=== PATIENT | male | born 1970 | race Caucasian/White ===

== ENCOUNTER 2019-08-24 11:04 | Inpatient (IN) ==
[2019-08-24] MEDS ORDERED: Regadenoson 0.4 MG/5 ML SYRINGE IVP ONE (11:53)
[2019-08-24 14:53] LABS: Basophils % 0.4 %; Eosinophils # 0.1 K/mcL (0.0-0.6); Eosinophils % 1.3 %; Hemoglobin 13.3 g/dL (12.9-16.9); Lymphocytes # 2.8 K/mcL (0.6-4.6); Lymphocytes % 35.7 %; Mean Corpuscular HGB Conc 32.4 g/dL (31.6-35.5); Mean Corpuscular Hemoglobin 30.6 pg (28.0-33.3); Mean Corpuscular Volume 94.5 fL (83.0-100.0); Mean Platelet Volume 10.4 fL (9.4-12.4); Monocytes # 0.8 K/mcL (0.0-1.3); Monocytes % 10.3 %; Platelet Count 201 K/mcL (140-400); Red Blood Count 4.34 M/mcL (4.19-5.50); Red Cell Distribution Width 12.9 % (11.5-14.5); Segmented Neutrophils % 51.3 %; White Blood Count 7.8 K/mcL (4.3-11.1)
[2019-08-24 14:55] LABS: INR 0.9; Prothrombin Time 10.2 Seconds (9.4-12.1)
[2019-08-24 15:08] LABS: BUN/Creatinine Ratio 11 (6-26); Blood Urea Nitrogen 8 mg/dL (6-20); Calcium 9.7 mg/dL (8.6-10.3); Carbon Dioxide 28 mEq/L (23-29); Chloride 104 mEq/L (98-107); Glucose 100 mg/dL (70-105); Osmolality,Calculated 286 (280-300); Potassium 4.5 mEq/L (3.5-5.1); Sodium 139 mEq/L (136-145); eGFR For African Americans > 60 (> 60); eGFR For Non-African Americans > 60 (> 60)
[2019-08-24] MEDS ORDERED: *HR* Heparin 10,000 UNIT/10 ML VIAL ONE (15:11)
[2019-08-24] MEDS ORDERED: Heparin 1,000 UNITS/500 mL 500 ML ONE (15:11)
[2019-08-24] MEDS ORDERED: 0.9 % Sodium Chloride 2,000 ML ONE (15:11)
[2019-08-24] MEDS ORDERED: ISOVUE-370 200 ML INFUS..BTL ONE (15:11)
[2019-08-24] MEDS ORDERED: Nitroglycerin 1,000 MCG/10 ML VIAL IV ONE (15:12)
[2019-08-24] MEDS ORDERED: *HR* FentaNYL (PF) 100 MCG/2 ML VIAL ONE (15:29)
[2019-08-24] MEDS ORDERED: *HR* Midazolam HCl 2 MG/2 ML VIAL ONE (15:29)
[2019-08-24] MEDS ORDERED: Tirofiban 12.5 MG/250ML 12.5 MG/250 ML BAG ONE (15:47)
[2019-08-24] MEDS ORDERED: *HR* Heparin 5,000 UNIT/ML VIAL IVP PRN (16:01)
[2019-08-24] MEDS ORDERED: *HR* Heparin 5,000 UNIT/ML VIAL IVP ONE (16:01)
[2019-08-24] MEDS: Heparin 25,000 UNIT/250 ML D5W 25,000 UNIT/250 ML IV.SOLN IVC SCH (17:02)
[2019-08-24 17:34] LABS: Hematocrit 39.1 % (37.5-50.1); Hemoglobin 12.5 g/dL (12.9-16.9); Mean Corpuscular Hemoglobin 29.8 pg (28.0-33.3); Mean Corpuscular Volume 93.1 fL (83.0-100.0); Mean Platelet Volume 10.1 fL (9.4-12.4); Platelet Count 189 K/mcL (140-400); White Blood Count 7.7 K/mcL (4.3-11.1)
[2019-08-24 17:39] LABS: Prothrombin Time 10.8 Seconds (9.4-12.1)
[2019-08-24 17:47] LABS: Heparin anti-factor XA UFH 0.04 IU/mL (0.30-0.70)
[2019-08-24] MEDS: Divalproex (24 HR) 500 MG TABLET PO SCH (19:40)
[2019-08-24] MEDS: Famotidine 20 MG TABLET PO SCH (19:41)
[2019-08-24] MEDS: Gabapentin 300 MG CAPSULE PO SCH (19:41)
[2019-08-24] MEDS: Sucralfate 1 GM TABLET PO SCH (19:41)
[2019-08-24 19:43] LABS: Estimated Average Glucose 143 mg/dl; Hemoglobin A1C 6.6 %
[2019-08-24] MEDS: *HR* Heparin 5,000 UNIT/ML VIAL IVP PRN (23:19)
[2019-08-25] MEDS: *HR* Heparin 5,000 UNIT/ML VIAL IVP PRN ×2 (06:16→14:24)
[2019-08-25] MEDS: Gabapentin 300 MG CAPSULE PO SCH ×2 (07:55→20:13)
[2019-08-25] MEDS: Divalproex (24 HR) 500 MG TABLET PO SCH ×2 (07:55→20:14)
[2019-08-25] MEDS: Aspirin 81 MG TAB.CHEW PO SCH (07:55)
[2019-08-25] MEDS: Sucralfate 1 GM TABLET PO SCH ×2 (07:56→17:19)
[2019-08-25] MEDS ORDERED: Lisinopril-HCTZ 20-12.5mg TABLET PO SCH (09:00)
[2019-08-25 10:33] LABS: BUN/Creatinine Ratio 13 (6-26); Blood Urea Nitrogen 11 mg/dL (6-20); Calcium 9.5 mg/dL (8.6-10.3); Carbon Dioxide 27 mEq/L (23-29); Chloride 103 mEq/L (98-107); Chol/HDL Ratio 5.4 (0-4.9); Cholesterol 129 mg/dL (< 200); Glucose 113 mg/dL (70-105); HDL Cholesterol 24 mg/dL (40-59); LDL Cholesterol,Calculated 60 mg/dL (< 100); Osmolality,Calculated 286 (280-300); Potassium 3.9 mEq/L (3.5-5.1); Sodium 138 mEq/L (136-145); Triglycerides 224 mg/dL (< 150); eGFR For African Americans > 60 (> 60); eGFR For Non-African Americans > 60 (> 60)
[2019-08-25] MEDS: Heparin 25,000 UNIT/250 ML D5W 25,000 UNIT/250 ML IV.SOLN IVC SCH (13:15)
[2019-08-25] MEDS: Famotidine 20 MG TABLET PO SCH (20:13)
[2019-08-26] MEDS: Heparin 25,000 UNIT/250 ML D5W 25,000 UNIT/250 ML IV.SOLN IVC SCH ×2 (04:51→20:05)
[2019-08-26] MEDS: Aspirin 81 MG TAB.CHEW PO SCH (07:57)
[2019-08-26] MEDS: Gabapentin 300 MG CAPSULE PO SCH (07:57)
[2019-08-26] MEDS: Divalproex (24 HR) 500 MG TABLET PO SCH (07:57)
[2019-08-26] MEDS: Sucralfate 1 GM TABLET PO SCH ×2 (07:57→16:07)
[2019-08-26 11:03] LABS: Basophils % 0.4 %; Eosinophils # 0.1 K/mcL (0.0-0.6); Eosinophils % 0.8 %; Hematocrit 39.6 % (37.5-50.1); Hemoglobin 12.9 g/dL (12.9-16.9); Immature Granulocytes % 0.8 % (0-4); Lymphocytes # 3.1 K/mcL (0.6-4.6); Lymphocytes % 36.5 %; Mean Corpuscular HGB Conc 32.6 g/dL (31.6-35.5); Mean Corpuscular Hemoglobin 30.1 pg (28.0-33.3); Mean Corpuscular Volume 92.5 fL (83.0-100.0); Mean Platelet Volume 10.3 fL (9.4-12.4); Monocytes # 0.8 K/mcL (0.0-1.3); Monocytes % 9.8 %; Neutrophils # 4.4 K/mcL (1.6-8.9); Platelet Count 205 K/mcL (140-400); Red Blood Count 4.28 M/mcL (4.19-5.50); Red Cell Distribution Width 13.1 % (11.5-14.5); Segmented Neutrophils % 51.7 %; White Blood Count 8.5 K/mcL (4.3-11.1)
[2019-08-26 11:21] LABS: BUN/Creatinine Ratio 16 (6-26); Blood Urea Nitrogen 15 mg/dL (6-20); Calcium 9.5 mg/dL (8.6-10.3); Carbon Dioxide 25 mEq/L (23-29); Chloride 104 mEq/L (98-107); Glucose 125 mg/dL (70-105); Magnesium 1.9 mg/dL (1.6-2.6); Osmolality,Calculated 288 (280-300); Potassium 3.7 mEq/L (3.5-5.1); Sodium 138 mEq/L (136-145); eGFR For African Americans > 60 (> 60); eGFR For Non-African Americans > 60 (> 60)
[2019-08-26] MEDS ORDERED: Chlorhexidine Rinse 15 ML MOUTHWASH MM SCH (18:00)
[2019-08-26] MEDS ORDERED: *HR* Heparin 5,000 UNIT/ML VIAL IVP PRN ×2 (19:43→19:44)
[2019-08-26] MEDS ORDERED: Divalproex (24 HR) 500 MG TABLET PO ONE (21:00)
[2019-08-26] MEDS ORDERED: Gabapentin 300 MG CAPSULE PO ONE (21:00)
[2019-08-26] MEDS ORDERED: Famotidine 20 MG TABLET PO ONE (21:00)
[2019-08-27] MEDS ORDERED: Heparin 15,000 UNIT in 0.9 % Sodium Chloride 500 ML IV ONE (06:00)
[2019-08-27] MEDS ORDERED: Dextrose 50 % in Water (Vial) 30 ML, Sodium Bicarbonate 20 MEQ, Potassium Chloride 15 M... TH ONE (06:00)
[2019-08-27] MEDS ORDERED: Dextrose 50 % in Water (Vial) 30 ML, Sodium Bicarbonate 20 MEQ, Lidocaine 1% 5 ML, Insu... TH ONE ×3 (06:00)
[2019-08-27] MEDS ORDERED: Norepinephrine 4 MG in 0.9 % Sodium Chloride 250 ML IVC PRN (06:00)
[2019-08-27] MEDS ORDERED: Insulin Human Regular 100 UNIT in 0.9 % Sodium Chloride 100 ML IV PRN (06:00)
[2019-08-27] MEDS ORDERED: Chlorhexidine Rinse 15 ML MOUTHWASH MM ONE (06:30)
[2019-08-27] MEDS ORDERED: NiCARdipine 2.5 MG/10 ML Syringe IVPB ONE (06:52)
[2019-08-27] MEDS ORDERED: CeFAZolin Syr 2,000MG/20 ML 2,000 MG/20 ML SYRINGE IVPB ONE ×2 (07:00)
[2019-08-27] MEDS ORDERED: *HR* Midazolam HCl 5 MG/5 ML VIAL IVP ONE (07:01)
[2019-08-27] MEDS ORDERED: *HR* FentaNYL (PF) 1,000 MCG/20 ML VIAL ONE (07:01)
[2019-08-27] MEDS ORDERED: *HR* Propofol 200 MG/20 ML VIAL IVP ONE (07:01)
[2019-08-27] MEDS ORDERED: *HR* Rocuronium Bromide 50 MG/5 ML VIAL ONE ×3 (07:02→09:56)
[2019-08-27] MEDS ORDERED: Lidocaine 2% Syringe 100 MG/5 ML ONE (07:04)
[2019-08-27] MEDS ORDERED: Tranexamic Acid 1,000 MG/10 ML VIAL ONE (07:04)
[2019-08-27] MEDS ORDERED: Dexamethasone 4 MG/ML VIAL ONE (07:05)
[2019-08-27] MEDS ORDERED: *HR* PHENYLEPHRINE 1,000 MCG/10 ML SYRINGE IVP ONE (07:05)
[2019-08-27] MEDS ORDERED: *HR* Magnesium Sulfate 1 GM/2 ML VIAL ONE (07:06)
[2019-08-27] MEDS ORDERED: Famotidine 20 MG/2 ML VIAL ONE (07:06)
[2019-08-27] MEDS ORDERED: Aspirin 81 MG TAB.CHEW PO STA (07:35)
[2019-08-27 08:40] LABS: ABG Base Excess 2 mEq/L (-2 to 3); ABG Chloride 105 mEq/L (98-107); ABG Glucose 97 mg/dL (60-95); ABG HCO3 28 mEq/L (21-27); ABG Oxygen Saturation 100 % (95-98); ABG PCO2 46 mmHg (35-45); ABG PH 7.39 pH Units (7.32-7.45); ABG PO2 230 mmHg (85-104); ABG TCO2 29 mEq/L (20-26)
[2019-08-27 09:47] LABS: ABG Base Excess 2 mEq/L (-2 to 3); ABG Chloride 106 mEq/L (98-107); ABG Glucose 105 mg/dL (60-95); ABG HCO3 27 mEq/L (21-27); ABG Ionized Calcium 1.13 mmol/L (1.15-1.35); ABG Oxygen Saturation 100 % (95-98); ABG PCO2 43 mmHg (35-45); ABG PO2 181 mmHg (85-104); ABG TCO2 28 mEq/L (20-26)
[2019-08-27] MEDS ORDERED: Calcium Gluconate 1,000 MG/10 ML VIAL ONE (09:56)
[2019-08-27] MEDS ORDERED: Protamine Sulfate 250 MG/25 ML VIAL IVP ONE (09:56)
[2019-08-27 10:21] LABS: ABG Base Excess 2 mEq/L (-2 to 3); ABG Chloride 101 mEq/L (98-107); ABG Glucose 152 mg/dL (60-95); ABG HCO3 27 mEq/L (21-27); ABG Ionized Calcium 0.98 mmol/L (1.15-1.35); ABG Oxygen Saturation 100 % (95-98); ABG PCO2 41 mmHg (35-45); ABG PH 7.43 pH Units (7.32-7.45); ABG PO2 581 mmHg (85-104); ABG TCO2 28 mEq/L (20-26)
[2019-08-27 10:58] LABS: ABG Base Excess 3 mEq/L (-2 to 3); ABG Chloride 103 mEq/L (98-107); ABG Glucose 112 mg/dL (60-95); ABG HCO3 27 mEq/L (21-27); ABG Ionized Calcium 1.06 mmol/L (1.15-1.35); ABG Oxygen Saturation 100 % (95-98); ABG PCO2 39 mmHg (35-45); ABG PH 7.45 pH Units (7.32-7.45); ABG PO2 617 mmHg (85-104); ABG TCO2 29 mEq/L (20-26)
[2019-08-27] MEDS ORDERED: Amiodarone Premix 360 MG/200 ML BAG IVC ONE ×2 (11:09→12:08)
[2019-08-27] MEDS ORDERED: *HR* Amiodarone 150 MG/3 ML VIAL IVPB ONE (11:09)
[2019-08-27 11:31] LABS: ABG Base Excess 3 mEq/L (-2 to 3); ABG Chloride 105 mEq/L (98-107); ABG Glucose 116 mg/dL (60-95); ABG HCO3 28 mEq/L (21-27); ABG Ionized Calcium 1.06 mmol/L (1.15-1.35); ABG Oxygen Saturation 100 % (95-98); ABG PCO2 43 mmHg (35-45); ABG PH 7.43 pH Units (7.32-7.45); ABG PO2 460 mmHg (85-104); ABG TCO2 30 mEq/L (20-26)
[2019-08-27 12:05] LABS: ABG Base Excess 2 mEq/L (-2 to 3); ABG Chloride 103 mEq/L (98-107); ABG Glucose 107 mg/dL (60-95); ABG HCO3 27 mEq/L (21-27); ABG Ionized Calcium 1.09 mmol/L (1.15-1.35); ABG Oxygen Saturation 98 % (95-98); ABG PCO2 40 mmHg (35-45); ABG PH 7.43 pH Units (7.32-7.45); ABG PO2 98 mmHg (85-104); ABG TCO2 28 mEq/L (20-26)
[2019-08-27] MEDS ORDERED: Acetaminophen 650 MG RECTAL SUPP RC PRN (12:08)
[2019-08-27] MEDS ORDERED: Acetaminophen 325 MG TABLET PO PRN (12:08)
[2019-08-27] MEDS ORDERED: Naloxone 0.4 MG/ML INJ IVP PRN (12:08)
[2019-08-27] MEDS ORDERED: Insulin Regular, Human 100 UNIT/ML IV PRN (12:08)
[2019-08-27] MEDS ORDERED: Potassium Chloride 40 MEQ/200 ML BAG IVPB PRN (12:08)
[2019-08-27] MEDS ORDERED: Ondansetron 4 MG/2 ML VIAL IVP PRN (12:08)
[2019-08-27] MEDS ORDERED: Albumin Human 5% 12.5 GM/250 ML IV.SOLN ONE (12:08)
[2019-08-27] MEDS ORDERED: *HR* Dextrose 50 % in Water (Vial) 50 ML VIAL IVP PRN (12:08)
[2019-08-27] MEDS ORDERED: Amiodarone Premix 360 MG/200 ML BAG IVC SCH (12:15)
[2019-08-27 13:20] LABS: ABG Base Excess 3 mEq/L (-2 to 3); ABG HCO3 29 mEq/L (21-27); ABG Oxygen Saturation 98 % (95-98); ABG PCO2 47 mmHg (35-45); ABG PO2 105 mmHg (85-104); ABG TCO2 30 mEq/L (20-26); Blood Gas Modality AF; Blood Gas VT 600 cc
[2019-08-27] MEDS: *HR* FentaNYL (PF) 100 MCG/2 ML VIAL IVP PRN ×8 (13:25→23:10)
[2019-08-27 13:28] LABS: Basophils % 0.2 %; Eosinophils % 0.2 %; Hematocrit 34.7 % (37.5-50.1); Immature Granulocytes % 0.9 % (0-4); Lymphocytes # 2.6 K/mcL (0.6-4.6); Lymphocytes % 14.3 %; Mean Corpuscular HGB Conc 32.6 g/dL (31.6-35.5); Mean Corpuscular Hemoglobin 30.1 pg (28.0-33.3); Mean Corpuscular Volume 92.3 fL (83.0-100.0); Mean Platelet Volume 10.2 fL (9.4-12.4); Monocytes # 1.7 K/mcL (0.0-1.3); Monocytes % 9.5 %; Neutrophils # 13.4 K/mcL (1.6-8.9); Platelet Count 134 K/mcL (140-400); Red Blood Count 3.76 M/mcL (4.19-5.50); Red Cell Distribution Width 12.9 % (11.5-14.5); Segmented Neutrophils % 74.9 %
[2019-08-27 13:32] LABS: Hemoglobin 11.3 g/dL (12.9-16.9); White Blood Count 17.9 K/mcL (4.3-11.1)
[2019-08-27] MEDS ORDERED: Tranexamic Acid 1,000 MG/10 ML VIAL IR ONE (13:34)
[2019-08-27] MEDS ORDERED: Mannitol 25% vial 12.5 GM/50 ML VIAL IVPB ONE (13:34)
[2019-08-27] MEDS ORDERED: D5% in Water 250 ML IV BAG IV ONE (13:34)
[2019-08-27] MEDS ORDERED: Lidocaine 2% Syringe 100 MG/5 ML IVP ONE (13:34)
[2019-08-27] MEDS ORDERED: Heparin 1,000 UNITS/500 mL IV.SOLN IR ONE (13:34)
[2019-08-27] MEDS ORDERED: *HR* Phenylephrine 10 MG/ML VIAL IVC ONE (13:34)
[2019-08-27] MEDS ORDERED: *HR* Magnesium Sulfate 2 GM/50 ML PIGGYBACK IVPB ONE (13:34)
[2019-08-27] MEDS ORDERED: Albumin Human 25% 25 GM/100 ML IV.SOLN IVPB ONE (13:34)
[2019-08-27] MEDS ORDERED: *HR* Heparin 10,000 UNIT/10 ML VIAL IR ONE (13:34)
[2019-08-27 13:37] LABS: INR 1.2
[2019-08-27 13:41] LABS: Activated Partial Thrombo Time 29.8 Seconds (26.0-36.0)
[2019-08-27 13:44] LABS: Prothrombin Time 13.6 Seconds (9.4-12.1)
[2019-08-27] MEDS: 0.9 % Sodium Chloride w KCl 20 MEQ/1,000 ML MLS IVC SCH (13:47)
[2019-08-27 13:48] LABS: BUN/Creatinine Ratio 18 (6-26); Blood Urea Nitrogen 14 mg/dL (6-20); Carbon Dioxide 29 mEq/L (23-29); Chloride 105 mEq/L (98-107); Glucose 157 mg/dL (70-105); Magnesium 2.6 mg/dL (1.6-2.6); Osmolality,Calculated 292 (280-300); Sodium 139 mEq/L (136-145); eGFR For African Americans > 60 (> 60); eGFR For Non-African Americans > 60 (> 60)
[2019-08-27] MEDS: Pantoprazole 40 MG VIAL IVP SCH (13:55)
[2019-08-27] MEDS: *HR* OxyCODONE/APAP 5/325 TABLET PO PRN ×2 (13:55→19:41)
[2019-08-27] MEDS: Albumin Human 5% 12.5 GM/250 ML IV.SOLN IVPB PRN ×2 (14:59→22:50)
[2019-08-27 15:48] LABS: ABG Base Excess 2 mEq/L (-2 to 3); ABG HCO3 27 mEq/L (21-27); ABG Oxygen Saturation 93 % (95-98); ABG PCO2 44 mmHg (35-45); ABG PO2 66 mmHg (85-104); ABG TCO2 29 mEq/L (20-26); Blood Gas Modality CPAP/PS; Blood Gas Pressure Support 10 cm H2O
[2019-08-27] MEDS: CeFAZolin 2 GM/120 ML BAG IVPB SCH (15:57)
[2019-08-27] MEDS ORDERED: 0.9 % Sodium Chloride 250 ML ONE (15:58)
[2019-08-27] MEDS ORDERED: *HR* FentaNYL (PF) 100 MCG/2 ML VIAL IVP ONE (16:04)
[2019-08-27 16:45] LABS: ABG Base Excess 2 mEq/L (-2 to 3); ABG HCO3 28 mEq/L (21-27); ABG Oxygen Saturation 93 % (95-98); ABG PCO2 48 mmHg (35-45); ABG PH 7.37 pH Units (7.32-7.45); ABG PO2 71 mmHg (85-104); ABG TCO2 29 mEq/L (20-26)
[2019-08-27] MEDS: Metoclopramide 10 MG/2 ML VIAL IVP SCH (17:01)
[2019-08-27] MEDS: Ketorolac 15 MG/ML VIAL IVP SCH (17:01)
[2019-08-27 17:46] LABS: Hematocrit 35.5 % (37.5-50.1); Hemoglobin 11.5 g/dL (12.9-16.9)
[2019-08-27] MEDS: niCARdipine 20 MG/200 ML MLS IVC SCH ×2 (18:49→20:04)
[2019-08-27] MEDS: Norepinephrine 4 MG/254 ML IV.SOLN IVC SCH (18:49)
[2019-08-27] MEDS: Chlorhexidine Rinse 15 ML MOUTHWASH MM SCH (20:02)
[2019-08-27] MEDS: Heparin 25,000 UNIT/250 ML D5W 25,000 UNIT/250 ML IV.SOLN IVC SCH (20:04)
[2019-08-27] MEDS: Insulin Human Regular 100 UNIT in 0.9 % Sodium Chloride 100 ML IVC SCH (20:08)
[2019-08-28] MEDS: Metoclopramide 10 MG/2 ML VIAL IVP SCH ×5 (00:01→23:20)
[2019-08-28] MEDS: Ketorolac 15 MG/ML VIAL IVP SCH ×5 (00:01→23:20)
[2019-08-28] MEDS: *HR* OxyCODONE/APAP 5/325 TABLET PO PRN ×5 (00:01→20:30)
[2019-08-28] MEDS: CeFAZolin 2 GM/120 ML BAG IVPB SCH (00:01)
[2019-08-28] MEDS: niCARdipine 20 MG/200 ML MLS IVC SCH ×8 (00:02→21:57)
[2019-08-28] MEDS: *HR* FentaNYL (PF) 100 MCG/2 ML VIAL IVP PRN ×3 (03:12→12:20)
[2019-08-28 05:35] LABS: Basophils % 0.1 %; Hematocrit 30.6 % (37.5-50.1); Immature Granulocytes % 0.5 % (0-4); Lymphocytes # 1.6 K/mcL (0.6-4.6); Lymphocytes % 14.3 %; Mean Corpuscular HGB Conc 32.4 g/dL (31.6-35.5); Mean Corpuscular Volume 92.7 fL (83.0-100.0); Mean Platelet Volume 10.5 fL (9.4-12.4); Monocytes % 17.3 %; Neutrophils # 7.7 K/mcL (1.6-8.9); Platelet Count 116 K/mcL (140-400); Red Cell Distribution Width 12.9 % (11.5-14.5); Segmented Neutrophils % 67.8 %; White Blood Count 11.3 K/mcL (4.3-11.1)
[2019-08-28 05:37] LABS: Hemoglobin 9.9 g/dL (12.9-16.9)
[2019-08-28 05:39] LABS: Prothrombin Time 11.5 Seconds (9.4-12.1)
[2019-08-28 05:54] LABS: BUN/Creatinine Ratio 19 (6-26); Blood Urea Nitrogen 14 mg/dL (6-20); Calcium 8.1 mg/dL (8.6-10.3); Carbon Dioxide 27 mEq/L (23-29); Chloride 105 mEq/L (98-107); Glucose 136 mg/dL (70-105); Magnesium 2.1 mg/dL (1.6-2.6); Osmolality,Calculated 291 (280-300); Sodium 139 mEq/L (136-145); eGFR For African Americans > 60 (> 60); eGFR For Non-African Americans > 60 (> 60)
[2019-08-28] MEDS: 0.9 % Sodium Chloride w KCl 20 MEQ/1,000 ML MLS IVC SCH (07:12)
[2019-08-28] MEDS ORDERED: Amiodarone Premix 360 MG/200 ML BAG IVC SCH (07:30)
[2019-08-28] MEDS: Chlorhexidine Rinse 15 ML MOUTHWASH MM SCH ×2 (08:02→20:29)
[2019-08-28] MEDS: Pantoprazole 40 MG VIAL IVP SCH (08:03)
[2019-08-28] MEDS: Furosemide 20 MG/2 ML VIAL IVP SCH ×2 (08:03→20:29)
[2019-08-28] MEDS ORDERED: D5% in Water 1,000 ML IVC PRN (08:39)
[2019-08-28] MEDS ORDERED: Dextrose Gel 15 GM/37.5 ML TUBE PO PRN ×2 (08:39)
[2019-08-28] MEDS ORDERED: *HR* Dextrose 50 % in Water (Vial) 50 ML VIAL IVP PRN (08:39)
[2019-08-28] MEDS: Insulin Human Regular 100 UNIT in 0.9 % Sodium Chloride 100 ML IVC SCH (08:46)
[2019-08-28] MEDS ORDERED: Divalproex (24 HR) 500 MG TABLET PO SCH ×2 (09:00→21:00)
[2019-08-28] MEDS ORDERED: Aspirin Enteric Coated 81 MG Tablet PO SCH (09:00)
[2019-08-28] MEDS: *HR* Heparin 5,000 UNIT/ML VIAL SQ SCH ×2 (09:20→17:06)
[2019-08-28] MEDS: Gabapentin 300 MG CAPSULE PO SCH ×2 (09:20→20:29)
[2019-08-28] MEDS: Insulin LISPRO 300 UNITS/3 ML VIAL SQ SCH ×3 (11:28→17:06)
[2019-08-28] MEDS: Norepinephrine 4 MG/254 ML IV.SOLN IVC SCH (11:29)
[2019-08-28] MEDS: Sucralfate 1 GM TABLET PO SCH (16:26)
[2019-08-28] MEDS ORDERED: Insulin LISPRO 300 UNITS/3 ML VIAL SQ SCH (21:00)
[2019-08-29] MEDS: *HR* OxyCODONE/APAP 5/325 TABLET PO PRN ×3 (02:10→19:57)
[2019-08-29 03:56] LABS: Eosinophils % 0.2 %; Mean Corpuscular Hemoglobin 30.2 pg (28.0-33.3); Nucleated Red Blood Cells 0.4 /100 WBC (0); Red Cell Distribution Width 13.2 % (11.5-14.5); Segmented Neutrophils % 60.5 %
[2019-08-29 03:57] LABS: Basophils % 0.1 %; Hematocrit 27.2 % (37.5-50.1); Hemoglobin 8.8 g/dL (12.9-16.9); Immature Granulocytes % 0.9 % (0-4); Immature Platelets 6.7 % (1.1-6.1); Lymphocytes # 2.2 K/mcL (0.6-4.6); Lymphocytes % 23.3 %; Mean Corpuscular HGB Conc 32.4 g/dL (31.6-35.5); Mean Corpuscular Volume 93.5 fL (83.0-100.0); Monocytes # 1.4 K/mcL (0.0-1.3); Red Blood Count 2.91 M/mcL (4.19-5.50); White Blood Count 9.3 K/mcL (4.3-11.1)
[2019-08-29 04:16] LABS: BUN/Creatinine Ratio 23 (6-26); Blood Urea Nitrogen 18 mg/dL (6-20); Calcium 8.3 mg/dL (8.6-10.3); Carbon Dioxide 29 mEq/L (23-29); Chloride 100 mEq/L (98-107); Glucose 120 mg/dL (70-105); Osmolality,Calculated 285 (280-300); Potassium 3.6 mEq/L (3.5-5.1); Sodium 136 mEq/L (136-145); eGFR For African Americans > 60 (> 60); eGFR For Non-African Americans > 60 (> 60)
[2019-08-29 04:17] LABS: Neutrophils # 5.6 K/mcL (1.6-8.9); Platelet Count 95 K/mcL (140-400); Platelet Estimate Decreased (Normal)
[2019-08-29] MEDS: Ketorolac 15 MG/ML VIAL IVP SCH ×4 (05:12→23:15)
[2019-08-29] MEDS: *HR* Heparin 5,000 UNIT/ML VIAL SQ SCH ×2 (05:12→17:01)
[2019-08-29] MEDS: Metoclopramide 10 MG/2 ML VIAL IVP SCH ×4 (05:12→23:15)
[2019-08-29] MEDS ORDERED: Acetaminophen 325 MG TABLET PO PRN (08:14)
[2019-08-29] MEDS ORDERED: Dextrose Gel 15 GM/37.5 ML TUBE PO PRN ×2 (08:14)
[2019-08-29] MEDS ORDERED: *HR* Dextrose 50 % in Water (Vial) 50 ML VIAL IVP PRN (08:14)
[2019-08-29] MEDS ORDERED: D5% in Water 1,000 ML IVC PRN (08:14)
[2019-08-29] MEDS ORDERED: Ondansetron 4 MG/2 ML VIAL IVP PRN (08:14)
[2019-08-29] MEDS ORDERED: Naloxone 0.4 MG/ML INJ IVP PRN (08:14)
[2019-08-29] MEDS ORDERED: Insulin Regular, Human 100 UNIT/ML IV PRN (08:14)
[2019-08-29] MEDS: Famotidine 20 MG TABLET PO SCH ×2 (08:48→19:56)
[2019-08-29] MEDS: Aspirin Enteric Coated 81 MG Tablet PO SCH (08:49)
[2019-08-29] MEDS: Furosemide 20 MG/2 ML VIAL IVP SCH ×2 (08:49→19:57)
[2019-08-29] MEDS: Gabapentin 300 MG CAPSULE PO SCH ×2 (08:49→19:57)
[2019-08-29] MEDS ORDERED: *HR* Amiodarone 200 MG TABLET PO SCH ×2 (09:00)
[2019-08-29] MEDS ORDERED: Famotidine 20 MG TABLET PO SCH (09:00)
[2019-08-29] MEDS: Insulin LISPRO 300 UNITS/3 ML VIAL SQ SCH ×4 (12:03→19:58)
[2019-08-29] MEDS: Sucralfate 1 GM TABLET PO SCH ×2 (17:01→19:58)
[2019-08-29] MEDS: Divalproex (24 HR) 500 MG TABLET PO SCH (20:38)
[2019-08-30] MEDS: *HR* OxyCODONE/APAP 5/325 TABLET PO PRN ×3 (01:27→20:33)
[2019-08-30] MEDS ORDERED: Amiodarone Premix 150 MG/100 ML BAG IVPB ONE (02:03)
[2019-08-30] MEDS ORDERED: Amiodarone Premix 360 MG/200 ML BAG IVC ONE (02:15)
[2019-08-30 03:14] LABS: Basophils % 0.4 %; Mean Corpuscular HGB Conc 32.6 g/dL (31.6-35.5); Monocytes % 5.2 %
[2019-08-30 03:16] LABS: Eosinophils # 0.1 K/mcL (0.0-0.6); Eosinophils % 2.6 %; Hematocrit 26.4 % (37.5-50.1); Hemoglobin 8.6 g/dL (12.9-16.9); Immature Granulocytes % 2.6 % (0-4); Immature Platelets 4.1 % (1.1-6.1); Lymphocytes # 1.4 K/mcL (0.6-4.6); Lymphocytes % 60.4 %; Mean Corpuscular Volume 95.3 fL (83.0-100.0); Mean Platelet Volume 10.4 fL (9.4-12.4); Monocytes # 0.1 K/mcL (0.0-1.3); Neutrophils # 0.7 K/mcL (1.6-8.9); Nucleated Red Blood Cells 1.7 /100 WBC (0); Red Blood Count 2.77 M/mcL (4.19-5.50); Red Cell Distribution Width 13.2 % (11.5-14.5); Segmented Neutrophils % 28.8 %; White Blood Count 2.3 K/mcL (4.3-11.1)
[2019-08-30 03:20] LABS: Platelet Count 93 K/mcL (140-400)
[2019-08-30 03:36] LABS: BUN/Creatinine Ratio 30 (6-26); Blood Urea Nitrogen 21 mg/dL (6-20); Calcium 8.3 mg/dL (8.6-10.3); Carbon Dioxide 29 mEq/L (23-29); Chloride 101 mEq/L (98-107); Glucose 118 mg/dL (70-105); Magnesium 2.1 mg/dL (1.6-2.6); Osmolality,Calculated 288 (280-300); Potassium 3.4 mEq/L (3.5-5.1); Sodium 137 mEq/L (136-145); eGFR For African Americans > 60 (> 60); eGFR For Non-African Americans > 60 (> 60)
[2019-08-30] MEDS ORDERED: *HR* Metoprolol 5 MG/5 ML VIAL IVP ONE (03:58)
[2019-08-30] MEDS ORDERED: *HR* LORazepam 2 MG/ML VIAL IVP ONE (04:00)
[2019-08-30] MEDS: Ketorolac 15 MG/ML VIAL IVP SCH ×4 (05:11→23:30)
[2019-08-30] MEDS: *HR* Heparin 5,000 UNIT/ML VIAL SQ SCH ×2 (05:11→16:59)
[2019-08-30] MEDS: Metoclopramide 10 MG/2 ML VIAL IVP SCH ×3 (05:11→16:59)
[2019-08-30] MEDS: Insulin LISPRO 300 UNITS/3 ML VIAL SQ SCH ×4 (08:42→20:18)
[2019-08-30] MEDS: Famotidine 20 MG TABLET PO SCH ×2 (08:42→20:34)
[2019-08-30] MEDS: *HR* Amiodarone 200 MG TABLET PO SCH (08:43)
[2019-08-30] MEDS: Divalproex (24 HR) 500 MG TABLET PO SCH ×2 (08:43→20:34)
[2019-08-30] MEDS: Aspirin Enteric Coated 81 MG Tablet PO SCH (08:44)
[2019-08-30] MEDS: Sucralfate 1 GM TABLET PO SCH ×2 (08:44→16:59)
[2019-08-30] MEDS: Gabapentin 300 MG CAPSULE PO SCH ×2 (08:44→20:34)
[2019-08-30] MEDS: Amiodarone Premix 360 MG/200 ML BAG IVC SCH (09:06)
[2019-08-31] MEDS: *HR* OxyCODONE/APAP 5/325 TABLET PO PRN ×2 (00:37→23:55)
[2019-08-31 04:42] LABS: Hematocrit 33.9 % (37.5-50.1); Mean Corpuscular HGB Conc 32.2 g/dL (31.6-35.5); Mean Corpuscular Hemoglobin 30.7 pg (28.0-33.3); Mean Corpuscular Volume 95.5 fL (83.0-100.0); Mean Platelet Volume 10.8 fL (9.4-12.4); Platelet Count 126 K/mcL (140-400); Red Blood Count 3.55 M/mcL (4.19-5.50); Red Cell Distribution Width 13.2 % (11.5-14.5); White Blood Count 7.5 K/mcL (4.3-11.1)
[2019-08-31 04:43] LABS: Hemoglobin 10.9 g/dL (12.9-16.9)
[2019-08-31 04:51] LABS: BUN/Creatinine Ratio 28 (6-26); Blood Urea Nitrogen 23 mg/dL (6-20); Calcium 8.8 mg/dL (8.6-10.3); Carbon Dioxide 31 mEq/L (23-29); Chloride 101 mEq/L (98-107); Glucose 99 mg/dL (70-105); Magnesium 2.2 mg/dL (1.6-2.6); Osmolality,Calculated 290 (280-300); Potassium 3.5 mEq/L (3.5-5.1); Sodium 138 mEq/L (136-145); eGFR For African Americans > 60 (> 60); eGFR For Non-African Americans > 60 (> 60)
[2019-08-31] MEDS: *HR* Heparin 5,000 UNIT/ML VIAL SQ SCH ×2 (05:18→18:07)
[2019-08-31] MEDS: Ketorolac 15 MG/ML VIAL IVP SCH ×4 (05:18→23:50)
[2019-08-31] MEDS: Gabapentin 300 MG CAPSULE PO SCH ×2 (08:34→20:46)
[2019-08-31] MEDS: *HR* Amiodarone 200 MG TABLET PO SCH (08:35)
[2019-08-31] MEDS: Famotidine 20 MG TABLET PO SCH ×2 (08:35→20:46)
[2019-08-31] MEDS: Sucralfate 1 GM TABLET PO SCH ×2 (08:35→18:07)
[2019-08-31] MEDS: Aspirin Enteric Coated 81 MG Tablet PO SCH (08:35)
[2019-08-31] MEDS: Amiodarone Premix 360 MG/200 ML BAG IVC SCH (08:37)
[2019-08-31] MEDS: Insulin LISPRO 300 UNITS/3 ML VIAL SQ SCH ×4 (08:37→20:46)
[2019-08-31] MEDS: Divalproex (24 HR) 500 MG TABLET PO SCH ×2 (08:37→20:46)
[2019-08-31] MEDS ORDERED: *HR* Amiodarone 200 MG TABLET PO ONE (21:17)
[2019-09-01] MEDS: *HR* Heparin 5,000 UNIT/ML VIAL SQ SCH ×2 (05:49→18:01)
[2019-09-01] MEDS: Ketorolac 15 MG/ML VIAL IVP SCH ×2 (05:49→12:29)
[2019-09-01] MEDS: Sucralfate 1 GM TABLET PO SCH ×2 (08:20→16:22)
[2019-09-01] MEDS: Divalproex (24 HR) 500 MG TABLET PO SCH ×2 (08:21→20:21)
[2019-09-01] MEDS: Aspirin Enteric Coated 81 MG Tablet PO SCH (08:21)
[2019-09-01] MEDS: Insulin LISPRO 300 UNITS/3 ML VIAL SQ SCH ×4 (08:21→20:59)
[2019-09-01] MEDS: *HR* Amiodarone 200 MG TABLET PO SCH ×2 (08:21→16:08)
[2019-09-01] MEDS: Gabapentin 300 MG CAPSULE PO SCH ×2 (08:22→20:21)
[2019-09-01] MEDS: Famotidine 20 MG TABLET PO SCH ×2 (08:22→20:21)
[2019-09-01] MEDS ORDERED: *HR* Amiodarone 200 MG TABLET PO ONE ×2 (16:00→21:17)
[2019-09-01] MEDS: Metoprolol 100 MG TABLET PO SCH (16:22)
[2019-09-01] MEDS: DilTIAZem 50 MG/50 ML IV.SOLN IVC SCH (18:43)
[2019-09-01] MEDS: *HR* OxyCODONE/APAP 5/325 TABLET PO PRN (20:55)
[2019-09-01] MEDS: DilTIAZem CD (24hr) 180 MG CAP.ER.24H PO SCH (20:58)
[2019-09-02] MEDS: *HR* Heparin 5,000 UNIT/ML VIAL SQ SCH (05:47)
[2019-09-02] MEDS: Famotidine 20 MG TABLET PO SCH ×2 (08:16→21:25)
[2019-09-02] MEDS: Sucralfate 1 GM TABLET PO SCH ×2 (08:16→16:22)
[2019-09-02] MEDS: Aspirin Enteric Coated 81 MG Tablet PO SCH (08:16)
[2019-09-02] MEDS: Gabapentin 300 MG CAPSULE PO SCH ×2 (08:16→21:25)
[2019-09-02] MEDS: DilTIAZem CD (24hr) 180 MG CAP.ER.24H PO SCH (08:16)
[2019-09-02] MEDS: *HR* Amiodarone 200 MG TABLET PO SCH ×2 (08:17→21:25)
[2019-09-02] MEDS: Divalproex (24 HR) 500 MG TABLET PO SCH ×2 (08:18→21:25)
[2019-09-02] MEDS: Insulin LISPRO 300 UNITS/3 ML VIAL SQ SCH ×4 (08:30→21:16)
[2019-09-02] MEDS: Metoprolol 100 MG TABLET PO SCH (08:35)
[2019-09-02] MEDS: *HR* Dabigatran 150 MG CAPSULE PO SCH ×2 (08:36→21:25)
[2019-09-02] MEDS: *HR* OxyCODONE/APAP 5/325 TABLET PO PRN ×2 (11:51→21:24)
[2019-09-02] MEDS: DilTIAZem 50 MG/50 ML IV.SOLN IVC SCH (17:41)
[2019-09-03 07:07] VITALS: BP 125/69
[2019-09-03] MEDS: *HR* Amiodarone 200 MG TABLET PO SCH (08:18)
[2019-09-03] MEDS: Aspirin Enteric Coated 81 MG Tablet PO SCH (08:18)
[2019-09-03] MEDS: *HR* Dabigatran 150 MG CAPSULE PO SCH (08:18)
[2019-09-03] MEDS: Gabapentin 300 MG CAPSULE PO SCH (08:18)
[2019-09-03] MEDS: Sucralfate 1 GM TABLET PO SCH (08:18)
[2019-09-03] MEDS: Famotidine 20 MG TABLET PO SCH (08:18)
[2019-09-03] MEDS: Divalproex (24 HR) 500 MG TABLET PO SCH (08:19)
[2019-09-03] MEDS: Insulin LISPRO 300 UNITS/3 ML VIAL SQ SCH (08:19)
[2019-09-03] MEDS: *HR* OxyCODONE/APAP 5/325 TABLET PO PRN (08:24)
== END 2019-09-03 11:45 | disposition home or self-care (01) | DRG 166 ==
LOC: CARSER 11:04 → 2ANU 11:04 → ICNU 08-26 18:20 → 2NNU 09-01 13:20
PROVIDERS: ADMIT Internal Medicine Cardiovascular Disease; ATTEND Thoracic Surgery (Cardiothoracic Vascular Surgery)

== ENCOUNTER 2019-09-06 00:47 | Observation (INO) ==
[2019-09-06] MEDS ORDERED: Morphine Sulfate 2 MG/ML SYRINGE IVP ONE (01:00)
[2019-09-06] MEDS ORDERED: Ondansetron 4 MG/2 ML VIAL IVP ONE (01:00)
[2019-09-06] MEDS ORDERED: Isovue-370 500 ML BOTTLE IVP ONE (01:01)
[2019-09-06] MEDS ORDERED: 0.9 % Sodium Chloride 1,000 ML IVC ONE (01:02)
[2019-09-06 02:21] LABS: Prothrombin Time 11.8 Seconds (9.4-12.1)
[2019-09-06 02:22] LABS: Basophils # 0.1 K/mcL (0.0-0.2); Basophils % 0.5 %; Eosinophils # 0.5 K/mcL (0.0-0.6); Hematocrit 30.4 % (37.5-50.1); Hemoglobin 9.6 g/dL (12.9-16.9); Immature Granulocytes % 4.5 % (0-4); Lymphocytes # 2.9 K/mcL (0.6-4.6); Lymphocytes % 24.1 %; Mean Corpuscular HGB Conc 31.6 g/dL (31.6-35.5); Mean Corpuscular Hemoglobin 30.1 pg (28.0-33.3); Mean Corpuscular Volume 95.3 fL (83.0-100.0); Mean Platelet Volume 10.2 fL (9.4-12.4); Monocytes # 1.3 K/mcL (0.0-1.3); Nucleated Red Blood Cells 0.9 /100 WBC (0); Platelet Count 398 K/mcL (140-400); Red Blood Count 3.19 M/mcL (4.19-5.50); Red Cell Distribution Width 13.4 % (11.5-14.5); Segmented Neutrophils % 55.9 %
[2019-09-06 02:23] LABS: Activated Partial Thrombo Time 29.9 Seconds (26.0-36.0)
[2019-09-06 02:34] LABS: Alanine Aminotransferase 25 Units/L (7-52); Albumin 3.5 g/dL (3.5-5.7); Albumin/Globulin Ratio 1.2 (1.1-2.2); Alkaline Phosphatase 69 Units/L (34-104); Aspartate Amino Transferase 14 Units/L (13-39); BUN/Creatinine Ratio 16 (6-26); Bilirubin,Direct 0.2 mg/dL (0.0-0.2); Bilirubin,Indirect 0.6 mg/dL (0.0-1.0); Bilirubin,Total 0.8 mg/dL (0.3-1.0); Blood Urea Nitrogen 16 mg/dL (6-20); Calcium 9.2 mg/dL (8.6-10.3); Carbon Dioxide 27 mEq/L (23-29); Chloride 97 mEq/L (98-107); Glucose 108 mg/dL (70-105); Lipase 66 Units/L (11-82); Osmolality,Calculated 280 (280-300); Potassium 3.6 mEq/L (3.5-5.1); Sodium 134 mEq/L (136-145); Total Protein 6.5 g/dL (6.4-8.9); eGFR For African Americans > 60 (> 60); eGFR For Non-African Americans > 60 (> 60)
[2019-09-06 02:39] LABS: Bilirubin,Urine Negative (Negative); Blood,Urine Negative (Negative); Clarity,Urine Clear (Clear); Color,Urine Light-Yellow (Yellow); Glucose,Urine (UA) Normal (Normal); Ketones,Urine Trace mg/dL (Negative); Leukocyte Esterase,Urine Negative (Negative); Nitrite,Urine Negative (Negative); PH,Urine 6.5 pH Units (5.0-8.0); Protein,Urine Trace mg/dL (Neg-Trace); Specific Gravity,Urine > 1.030 (1.010-1.025)
[2019-09-06 02:39] LABS: Troponin I 0.19 ng/mL (< 0.04)
[2019-09-06 02:47] LABS: Neutrophils # 6.7 K/mcL (1.6-8.9); White Blood Count 11.9 K/mcL (4.3-11.1)
[2019-09-06] MEDS ORDERED: Aspirin 81 MG TAB.CHEW PO ONE (03:12)
[2019-09-06] MEDS ORDERED: *HR* Heparin 5,000 UNIT/ML VIAL IVP PRN ×2 (03:34)
[2019-09-06] MEDS ORDERED: *HR* Heparin 5,000 UNIT/ML VIAL IVP ONE (03:34)
[2019-09-06] MEDS ORDERED: Heparin 25,000 UNIT/250 ML D5W 25,000 UNIT/250 ML IV.SOLN IVC SCH (03:45)
[2019-09-06 04:15] LABS: Hematocrit 25.7 % (37.5-50.1); Hemoglobin 8.2 g/dL (12.9-16.9); Mean Corpuscular HGB Conc 31.9 g/dL (31.6-35.5); Mean Corpuscular Volume 94.1 fL (83.0-100.0); Mean Platelet Volume 9.6 fL (9.4-12.4); Platelet Count 321 K/mcL (140-400); Red Blood Count 2.73 M/mcL (4.19-5.50); Red Cell Distribution Width 13.5 % (11.5-14.5); White Blood Count 10.2 K/mcL (4.3-11.1)
[2019-09-06 04:25] LABS: Heparin anti-factor XA UFH < 0.04 IU/mL (0.30-0.70)
[2019-09-06 04:26] LABS: Prothrombin Time 11.6 Seconds (9.4-12.1)
[2019-09-06] MEDS ORDERED: *HR* Promethazine 25 MG/ML VIAL IVP PRN (06:05)
[2019-09-06] MEDS ORDERED: Naloxone 0.4 MG/ML INJ IVP PRN (06:05)
[2019-09-06] MEDS ORDERED: Perflutren Lipid Microsphere 1.3 ML in 0.9 % Sodium Chloride 8.7 ML IVP PRN ×2 (06:07→06:10)
[2019-09-06] MEDS ORDERED: Dextrose Gel 15 GM/37.5 ML TUBE PO PRN ×2 (06:12)
[2019-09-06] MEDS ORDERED: D5% in Water 1,000 ML IVC PRN (06:12)
[2019-09-06] MEDS ORDERED: *HR* Dextrose 50 % in Water (Vial) 50 ML VIAL IVP PRN (06:12)
[2019-09-06] MEDS: *HR* Amiodarone 200 MG TABLET PO SCH (10:51)
[2019-09-06] MEDS: Divalproex (24 HR) 500 MG TABLET PO SCH ×2 (10:51→17:21)
[2019-09-06] MEDS: Gabapentin 300 MG CAPSULE PO SCH ×2 (10:52→20:57)
[2019-09-06] MEDS: Sucralfate 1 GM TABLET PO SCH ×2 (10:52→20:57)
[2019-09-06] MEDS: Insulin LISPRO 300 UNITS/3 ML VIAL SQ SCH ×3 (10:53→17:32)
[2019-09-06] MEDS: Pantoprazole 40 MG VIAL IVP SCH ×2 (10:53→17:33)
[2019-09-06 11:00] LABS: Basophils # 0.1 K/mcL (0.0-0.2); Basophils % 0.7 %; Eosinophils # 0.4 K/mcL (0.0-0.6); Eosinophils % 4.6 %; Hematocrit 27.7 % (37.5-50.1); Hemoglobin 8.7 g/dL (12.9-16.9); Immature Granulocytes % 4.8 % (0-4); Lymphocytes # 2.9 K/mcL (0.6-4.6); Lymphocytes % 30.8 %; Mean Corpuscular HGB Conc 31.4 g/dL (31.6-35.5); Mean Corpuscular Hemoglobin 29.3 pg (28.0-33.3); Mean Corpuscular Volume 93.3 fL (83.0-100.0); Mean Platelet Volume 10.1 fL (9.4-12.4); Monocytes # 1.2 K/mcL (0.0-1.3); Monocytes % 12.2 %; Neutrophils # 4.5 K/mcL (1.6-8.9); Nucleated Red Blood Cells 0.6 /100 WBC (0); Platelet Count 329 K/mcL (140-400); Red Blood Count 2.97 M/mcL (4.19-5.50); Red Cell Distribution Width 13.6 % (11.5-14.5); Segmented Neutrophils % 46.9 %; White Blood Count 9.5 K/mcL (4.3-11.1)
[2019-09-06] MEDS ORDERED: 0.9 % Sodium Chloride 250 ML ONE (11:09)
[2019-09-06] MEDS: 0.9 % Sodium Chloride 1,000 ML IVC SCH (12:36)
[2019-09-06] MEDS ORDERED: Potassium Chloride Elixir 20 MEQ/15 ML UDC PO ONE (14:43)
[2019-09-06 18:25] LABS: Hematocrit 31.2 % (37.5-50.1); Hemoglobin 9.8 g/dL (12.9-16.9)
[2019-09-07] MEDS: Acetaminophen 325 MG TABLET PO PRN ×3 (02:17→20:40)
[2019-09-07] MEDS ORDERED: *HR* Metoprolol 5 MG/5 ML VIAL IVP ONE (03:02)
[2019-09-07] MEDS: 0.9 % Sodium Chloride 1,000 ML IVC SCH (03:15)
[2019-09-07 05:01] LABS: Basophils # 0.1 K/mcL (0.0-0.2); Basophils % 0.8 %; Eosinophils # 0.4 K/mcL (0.0-0.6); Eosinophils % 4.8 %; Hematocrit 29.9 % (37.5-50.1); Hemoglobin 9.4 g/dL (12.9-16.9); Immature Granulocytes % 4.8 % (0-4); Lymphocytes # 2.5 K/mcL (0.6-4.6); Lymphocytes % 29.5 %; Mean Corpuscular HGB Conc 31.4 g/dL (31.6-35.5); Mean Corpuscular Hemoglobin 29.7 pg (28.0-33.3); Mean Corpuscular Volume 94.3 fL (83.0-100.0); Mean Platelet Volume 9.4 fL (9.4-12.4); Monocytes # 1.1 K/mcL (0.0-1.3); Monocytes % 13.1 %; Neutrophils # 3.9 K/mcL (1.6-8.9); Nucleated Red Blood Cells 0.6 /100 WBC (0); Platelet Count 337 K/mcL (140-400); Red Blood Count 3.17 M/mcL (4.19-5.50); Red Cell Distribution Width 14.2 % (11.5-14.5); White Blood Count 8.3 K/mcL (4.3-11.1)
[2019-09-07 05:04] LABS: Prothrombin Time 11.6 Seconds (9.4-12.1)
[2019-09-07 05:22] LABS: BUN/Creatinine Ratio 13 (6-26); Blood Urea Nitrogen 11 mg/dL (6-20); Calcium 8.5 mg/dL (8.6-10.3); Carbon Dioxide 29 mEq/L (23-29); Chloride 104 mEq/L (98-107); Glucose 99 mg/dL (70-105); Osmolality,Calculated 287 (280-300); Phosphorous 3.6 mg/dL (2.7-4.5); Sodium 139 mEq/L (136-145); eGFR For African Americans > 60 (> 60); eGFR For Non-African Americans > 60 (> 60)
[2019-09-07] MEDS: Pantoprazole 40 MG VIAL IVP SCH (05:35)
[2019-09-07] MEDS: Insulin LISPRO 300 UNITS/3 ML VIAL SQ SCH ×3 (07:40→16:39)
[2019-09-07 07:47] LABS: Alanine Aminotransferase 20 Units/L (7-52); Albumin/Globulin Ratio 1.3 (1.1-2.2); Alkaline Phosphatase 61 Units/L (34-104); Aspartate Amino Transferase 11 Units/L (13-39); Bilirubin,Direct 0.1 mg/dL (0.0-0.2); Bilirubin,Indirect 0.7 mg/dL (0.0-1.0); Bilirubin,Total 0.8 mg/dL (0.3-1.0); Globulin 2.4 g/dL (2.4-3.5); Lactate Dehydrogenase 167 Units/L (140-271); Total Protein 5.4 g/dL (6.4-8.9)
[2019-09-07] MEDS: Divalproex (24 HR) 500 MG TABLET PO SCH ×2 (10:20→17:04)
[2019-09-07] MEDS: Gabapentin 300 MG CAPSULE PO SCH ×2 (10:20→20:32)
[2019-09-07] MEDS: *HR* Amiodarone 200 MG TABLET PO SCH (10:20)
[2019-09-07] MEDS: Sucralfate 1 GM TABLET PO SCH ×2 (10:20→20:32)
[2019-09-07] MEDS: Aspirin 81 MG TAB.CHEW PO SCH (10:20)
[2019-09-07 10:39] LABS: RBC,Pleural Fluid 60000 RBC/mcL
[2019-09-07 10:45] LABS: Appearance of Pleural Fl Bloody (Clear)
[2019-09-07 11:06] LABS: Amylase,Pleural Fluid 11 Units/L (No Ref Range); Glucose,Pleural Fluid 102 mg/dL (No Ref Range); LDH,Pleural Fluid 241 Units/L (No Ref Range); Total Protein,Pleural Fluid < 3.0 g/dL
[2019-09-07] MEDS ORDERED: *HR* LORazepam 2 MG/ML VIAL IVP ONE (11:10)
[2019-09-07] MEDS ORDERED: Morphine Sulfate 2 MG/ML SYRINGE IVP ONE (11:18)
[2019-09-07 13:21] LABS: Hematocrit 30.6 % (37.5-50.1); Hemoglobin 9.7 g/dL (12.9-16.9)
[2019-09-08 02:59] LABS: BUN/Creatinine Ratio 17 (6-26); Blood Urea Nitrogen 13 mg/dL (6-20); Calcium 8.1 mg/dL (8.6-10.3); Carbon Dioxide 27 mEq/L (23-29); Chloride 105 mEq/L (98-107); Glucose 99 mg/dL (70-105); Osmolality,Calculated 286 (280-300); Potassium 4.1 mEq/L (3.5-5.1); Sodium 138 mEq/L (136-145); eGFR For African Americans > 60 (> 60); eGFR For Non-African Americans > 60 (> 60)
[2019-09-08 05:50] LABS: Basophils # 0.1 K/mcL (0.0-0.2); Basophils % 0.5 %; Eosinophils # 0.4 K/mcL (0.0-0.6); Eosinophils % 3.7 %; Hematocrit 31.4 % (37.5-50.1); Hemoglobin 9.9 g/dL (12.9-16.9); Immature Granulocytes % 3.5 % (0-4); Lymphocytes % 30.6 %; Mean Corpuscular HGB Conc 31.5 g/dL (31.6-35.5); Mean Corpuscular Hemoglobin 29.4 pg (28.0-33.3); Mean Platelet Volume 10.2 fL (9.4-12.4); Monocytes # 1.1 K/mcL (0.0-1.3); Monocytes % 11.1 %; Nucleated Red Blood Cells 0.5 /100 WBC (0); Platelet Count 298 K/mcL (140-400); Red Blood Count 3.37 M/mcL (4.19-5.50); Red Cell Distribution Width 13.8 % (11.5-14.5); Segmented Neutrophils % 50.6 %; White Blood Count 9.9 K/mcL (4.3-11.1)
[2019-09-08 05:54] LABS: Mean Corpuscular Volume 93.2 fL (83.0-100.0)
[2019-09-08 06:50] VITALS: BP 109/67
[2019-09-08] MEDS: Insulin LISPRO 300 UNITS/3 ML VIAL SQ SCH (07:38)
[2019-09-08] MEDS: *HR* Amiodarone 200 MG TABLET PO SCH (07:49)
[2019-09-08] MEDS: Gabapentin 300 MG CAPSULE PO SCH (07:49)
[2019-09-08] MEDS: Acetaminophen 325 MG TABLET PO PRN (07:49)
[2019-09-08] MEDS: Divalproex (24 HR) 500 MG TABLET PO SCH (07:49)
[2019-09-08] MEDS: Sucralfate 1 GM TABLET PO SCH (07:49)
[2019-09-08] MEDS: Aspirin 81 MG TAB.CHEW PO SCH (07:49)
[2019-09-08] MEDS ORDERED: lisinopriL 5 MG TABLET PO SCH (09:00)
[2019-09-08 12:14] LABS: Fluid Source for Triglycerides PLEURAL FLUID
[2019-09-08 12:23] LABS: Triglycerides,Body Fluid 39 mg/dL
== END 2019-09-08 11:07 | disposition home or self-care (01) ==
LOC: 2ANU 00:47 → EMEROOARM 00:47 → SUATTDRO 04:04 → 2ANU 04:15
PROVIDERS: ADMIT Internal Medicine; ATTEND Internal Medicine